=== PATIENT | female | born 1955 | race Caucasian/White ===

== ENCOUNTER 2022-01-15 08:16 | Observation (INO) | payer MEDICARE, OTHER ==
[2022-01-15] MEDS ORDERED: ONDANSETRON 4 MG/2 ML VIAL IVP STA (08:38)
[2022-01-15] MEDS ORDERED: SODIUM CHLORIDE 0.9% 500 ML 500 ML IV STA (08:38)
[2022-01-15] MEDS ORDERED: ASPIRIN 81 MG PO STA (08:38)
[2022-01-15] MEDS ORDERED: PANTOPRAZOLE 40 MG/10 ML VIAL IVP STA (08:39)
[2022-01-15] MEDS ORDERED: MAG HYDROX/AL HYDROX/SIMETH 30 ML, HYOSCYAMINE ELIXIR 10 ML, LIDOCAINE VISCOUS 2% 10 ML PO STA ×3 (08:39)
--- NOTE | 2022-01-15 08:46 | ED ---
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 States that she had a sharp, burning substernal chest pain is presently a 6 out of 10 this morning when she was brushing her teeth. This occurred at approximately 7:30. Is currently 840. States that the pain lasted for approximately 20 minutes and resolved on its own. Currently states there is some residual pressure but mostly complains of throat discomfort at this time. Describes the pain as 0-1 out of 10. Denies shortness of breath. Tonight denies cough. Denies fevers. Denies nausea, vomiting, abdominal pain. Has no other acute complaints at this time. States she is feeling improved with concern regarding heart issue. - Related Data Home Medications Medication Instructions Recorded Confirmed Famotidine [Pepcid AC] 10 mg PO DAILY PRN 01/15/22 01/15/22 Omeprazole 20 mg PO DAILY 01/15/22 01/15/22 Sertraline [Zoloft] 100 mg PO DAILY 01/15/22 01/15/22 diphenhydrAMINE HCL [Benadryl] 25 mg PO HS PRN 01/15/22 01/15/22 Allergies Allergy/AdvReac Type Severity Reaction Status Date / Time No Known Allergies Allergy Verified 01/15/22 10:35 Review of Systems ROS Statement: Those systems with pertinent positive or pertinent negative responses have been documented in the HPI. Review of Systems: CONST: Denies fever EYES: Denies blurry vision ENT: Denies nasal congestion C/V: Denies current Chest pain RESP: Denies shortness of breath GI: Denies abdominal pain : Denies dysuria SKIN: Denies rash. MSK: Denies joint pain. NEURO: Denies headache ROS Other: All systems not noted in ROS Statement are negative. Past Medical History Past Medical History: GERD/Reflux History of Any Multi-Drug Resistant Organisms: None Reported Past Surgical History: No Surgical Hx Reported Past Psychological History: Anxiety, Depression Smoking Status: Never smoker Past Alcohol Use History: None Reported Past Drug Use History: None Reported General Exam - General Exam Comments Initial Comments: General: Appears in no acute distress. HEAD: Normal with no signs of head trauma. EYES: PERRLA, EOMI, conjunctiva normal, no discharge. ENT: Hearing grossly intact, normal oropharynx. RESPIRATORY: Clear breath sounds bilaterally. No wheezes, rales, or rhonchi. C/V: Regular rate and rhythm. S1 and S2 auscultated, no edema, peripheral pulses 2+ and intact throughout ABD: Abd is soft, nontender, nondistended EXT: Normal range of motion, no obvious deformity SKIN: No rashes or lesions observed on exposed skin. NEURO: Alert and oriented 4. No focal deficits. Limitations: no limitations Course Vital Signs 01/15/22 01/15/22 08:21 11:21 Temperature 97.6 F 97.8 F Pulse Rate 58 L 59 L Respiratory 16 18 Rate Blood Pressure 134/74 112/66 O2 Sat by Pulse 100 99 Oximetry Medical Decision Making - Medical Decision Making Based on the patient's presentation and physical exam, I cannot rule out cardiac etiology for her pain that she experienced at home but she is currently asymptomatic. Within normal limits. We will administer 324 millions of aspirin in addition to small GI cocktail. We'll obtain cardiac labs, EKG, chest x-ray. Abdominal meds also be obtained. She was in agreement this plan. EKG shows no signs of acute ischemia. Chest x-ray shows no acute cardiopulmonary process. Laboratory studies are remarkable for an undetected troponin. Remainder the labs are unremarkable. On reevaluation, patient remains asymptomatic. She feels within her normal limits. Vital signs are stable. I did discuss with her admission to observation for as her heart score is moderate at 4. She was in agreement with the plan. We will trend her troponins. Echo is ordered. Cardiology is consulted. I spoke with the admitting physician, observation on-call Dr. Cabral who accepted the patient and was in agreement this plan. Patient was admitted in stable condition to telemetry bed. - Lab Data Result diagrams: 01/15/22 08:55 01/15/22 08:55 Lab Results 01/15/22 01/15/22 01/15/22 Range/Units 08:55 08:55 08:55 WBC 5.8 (3.8-10.6) k/uL RBC 3.85 (3.80-5.40) m/uL Hgb 12.3 (11.4-16.0) gm/dL Hct 37.1 (34.0-46.0) % MCV 96.3 (80.0-100.0) fL MCH 32.1 (25.0-35.0) pg MCHC 33.3 (31.0-37.0) g/dL RDW 12.7 (11.5-15.5) % Plt Count 205 (150-450) k/uL MPV 7.1 Neutrophils % 77 % Lymphocytes % 17 % Monocytes % 4 % Eosinophils % 1 % Basophils % 1 % Neutrophils # 4.5 (1.3-7.7) k/uL Lymphocytes # 1.0 (1.0-4.8) k/uL Monocytes # 0.2 (0-1.0) k/uL Eosinophils # 0.1 (0-0.7) k/uL Basophils # 0.0 (0-0.2) k/uL PT 10.6 (9.0-12.0) sec INR 1.0 (<1.2) APTT 22.0 (22.0-30.0) sec Sodium 138 (137-145) mmol/L Potassium 4.1 (3.5-5.1) mmol/L Chloride 101 (98-107) mmol/L Carbon Dioxide 29 (22-30) mmol/L Anion Gap 8 mmol/L BUN 16 (7-17) mg/dL Creatinine 0.66 (0.52-1.04) mg/dL Est GFR (CKD-EPI)AfAm >90 (>60 ml/min/1.73 sqM) Est GFR (CKD-EPI)NonAf >90 (>60 ml/min/1.73 sqM) Glucose 106 H (74-99) mg/dL Calcium 9.5 (8.4-10.2) mg/dL Magnesium 1.9 (1.6-2.3) mg/dL Total Bilirubin 0.7 (0.2-1.3) mg/dL AST 29 (14-36) U/L ALT 21 (4-34) U/L Alkaline Phosphatase 48 (38-126) U/L Troponin I (0.000-0.034) ng/mL Total Protein 7.4 (6.3-8.2) g/dL Albumin 4.8 (3.5-5.0) g/dL Amylase 81 (30-110) U/L Lipase 105 (23-300) U/L 01/15/22 Range/Units 08:55 WBC (3.8-10.6) k/uL RBC (3.80-5.40) m/uL Hgb (11.4-16.0) gm/dL Hct (34.0-46.0) % MCV (80.0-100.0) fL MCH (25.0-35.0) pg MCHC (31.0-37.0) g/dL RDW (11.5-15.5) % Plt Count (150-450) k/uL MPV Neutrophils % % Lymphocytes % % Monocytes % % Eosinophils % % Basophils % % Neutrophils # (1.3-7.7) k/uL Lymphocytes # (1.0-4.8) k/uL Monocytes # (0-1.0) k/uL Eosinophils # (0-0.7) k/uL Basophils # (0-0.2) k/uL PT (9.0-12.0) sec INR (<1.2) APTT (22.0-30.0) sec Sodium (137-145) mmol/L Potassium (3.5-5.1) mmol/L Chloride (98-107) mmol/L Carbon Dioxide (22-30) mmol/L Anion Gap mmol/L BUN (7-17) mg/dL Creatinine (0.52-1.04) mg/dL Est GFR (CKD-EPI)AfAm (>60 ml/min/1.73 sqM) Est GFR (CKD-EPI)NonAf (>60 ml/min/1.73 sqM) Glucose (74-99) mg/dL Calcium (8.4-10.2) mg/dL Magnesium (1.6-2.3) mg/dL Total Bilirubin (0.2-1.3) mg/dL AST (14-36) U/L ALT (4-34) U/L Alkaline Phosphatase (38-126) U/L Troponin I <0.012 (0.000-0.034) ng/mL Total Protein (6.3-8.2) g/dL Albumin (3.5-5.0) g/dL Amylase (30-110) U/L Lipase (23-300) U/L - EKG Data -: EKG Interpreted by Me EKG Comments: 12-lead Electrocardiogram Interpretation Note EKG was reviewed and interpreted by myself. 12-lead ECG performed at 0828 is interpreted by me as revealing sinus bradycardia at a rate of 54 beats per minute. [place] is normal. ID interval is 134 ms, QRS duration is 86 ms, QTc is 417 ms.. There were no ST or T wave abnormalities to suggest myocardial ischemia or injury. R wave progression across the precordium was satisfactory. By my interpretation this EKG is non-diagnostic for acute ischemia. Disposition Clinical Impression: Chest pain of unknown etiology Disposition: ADMITTED IP TO THIS HOSP Condition: Stable Time of Disposition: 09:58
[2022-01-15 09:16] LABS: Basophils % (A) 1 %; Eosinophils # (A) 0.1 k/uL (0-0.7); Eosinophils % (A) 1 %; HCT 37.1 % (34.0-46.0); HGB 12.3 gm/dL (11.4-16.0); Lymphocytes % (A) 17 %; MCH 32.1 pg (25.0-35.0); MCHC 33.3 g/dL (31.0-37.0); MCV 96.3 fL (80.0-100.0); Mean Platelet Volume 7.1; Monocytes # (A) 0.2 k/uL (0-1.0); Monocytes % (A) 4 %; Neutrophils # (A) 4.5 k/uL (1.3-7.7); Neutrophils % (A) 77 %; Platelet Count 205 k/uL (150-450); RBC 3.85 m/uL (3.80-5.40); RDW 12.7 % (11.5-15.5); WBC 5.8 k/uL (3.8-10.6)
[2022-01-15 09:42] LABS: ALT 21 U/L (4-34); AST 29 U/L (14-36); African American GFR (CKD) >90 (>60 ml/min/1.73 sqM); Albumin 4.8 g/dL (3.5-5.0); Alkaline Phosphatase 48 U/L (38-126); Amylase 81 U/L (30-110); Anion Gap 8 mmol/L; Blood Urea Nitrogen 16 mg/dL (7-17); Calcium 9.5 mg/dL (8.4-10.2); Carbon Dioxide 29 mmol/L (22-30); Chloride 101 mmol/L (98-107); Glucose 106 mg/dL (74-99); Lipase 105 U/L (23-300); Magnesium 1.9 mg/dL (1.6-2.3); Non-African American GFR(CKD) >90 (>60 ml/min/1.73 sqM); Potassium 4.1 mmol/L (3.5-5.1); Sodium 138 mmol/L (137-145); Total Bilirubin 0.7 mg/dL (0.2-1.3); Total Protein 7.4 g/dL (6.3-8.2)
[2022-01-15 09:46] LABS: Prothrombin Time 10.6 sec (9.0-12.0)
--- NOTE | 2022-01-15 09:58 | XR ---
EXAMINATION TYPE: XR chest 2V DATE OF EXAM: 01/15/2022 COMPARISON: None INDICATION: Chest pain midsternal TECHNIQUE: Frontal and lateral views of the chest are obtained. FINDINGS: The heart size is normal. The pulmonary vasculature is normal. The lungs are clear. Retrosternal space appears normal. IMPRESSION: 1. No acute pulmonary process. Follow-up can be performed as clinically indicated.
[2022-01-15] MEDS ORDERED: NALOXONE 0.4 MG/ML 1 ML VIAL IV PRN (10:42)
--- NOTE | 2022-01-15 11:42 | CA ---
Transthoracic Echo Report Name: Cherelle Reyes Age: 66 Gender: F : 1955 Exam Date: 01/15/2022 11:01 Exam Location: [facility] Ht (in): 67 Wt (lb): 130 Ordering Physician: Pop Kent MD Attending/Referring Phys: Local Driver Kya Bustillos RDCS Procedure CPT: Indications: Chest Pain Cardiac Hx: Technical Quality: Good Contrast 1: Total Dose (mL): Contrast 2: Total Dose (mL): MEASUREMENTS (Male / Female) Normal Values 2D ECHO LV Diastolic Diameter PLAX 4.8 cm 4.2 - 5.9 / 3.9 - 5.3 cm LV Systolic Diameter PLAX 2.9 cm IVS Diastolic Thickness 0.8 cm 0.6 - 1.0 / 0.6 - 0.9 cm LVPW Diastolic Thickness 0.8 cm 0.6 - 1.0 / 0.6 - 0.9 cm LV Relative Wall Thickness 0.3 RV Internal Dim ED PLAX 3.4 cm LA Systolic Diameter LX 3.2 cm 3.0 - 4.0 / 2.7 - 3.8 cm LA Volume 53.1 cm??? 18 - 58 / 22 - 52 cm??? M-MODE Aortic Root Diameter MM 3.3 cm MV E Point Septal Separation 0.4 cm AV Cusp Separation MM 1.8 cm DOPPLER AV Peak Velocity 152.5 cm/s AV Peak Gradient 9.3 mmHg MV Area PHT 2.1 cm??? Mitral E Point Velocity 69.6 cm/s Mitral A Point Velocity 87.4 cm/s Mitral E to A Ratio 0.8 MV Deceleration Time 353.9 ms MV E' Velocity 8.5 cm/s Mitral E to MV E' Ratio 8.2 TR Peak Velocity 231.1 cm/s TR Peak Gradient 21.4 mmHg Right Ventricular Systolic Press 25.4 mmHg FINDINGS Left Ventricle Left ventricular ejection fraction is estimated at 60-65 %. Left ventricular cavity size normal. Left ventricular wall thickness normal. Right Ventricle Normal right ventricular size. Right ventricular systolic pressure within normal limits. Right Atrium Normal right atrial size. Left Atrium Mildly increased left atrial volume. No evidence for an atrial septal defect. Mitral Valve Trace mitral regurgitation. Aortic Valve Trileaflet aortic valve. No aortic valve stenosis or regurgitation. Tricuspid Valve Mild tricuspid regurgitation. Pulmonic Valve Structurally normal pulmonic valve. Pericardium Normal pericardium. No pericardial effusion. Aorta Normal size aortic root and proximal ascending aorta. CONCLUSIONS Normal LV size and systolic function Mildly enlarged left atrium Previewed by: Dr. Ke Hernandez MD (Electronically Signed) Final Date: 15 January 2022 11:41
--- NOTE | 2022-01-15 12:47 | P.CRDCN ---
History of Present Illness Consult date: 01/15/22 History of present illness: HISTORY OF PRESENT ILLNESS: This is a 66-year-old female with a past medical history significant for borderline hyperlipidemia per patient, GERD, and depression. 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 We have been asked to see the patient in consultation for chest pain. Patient examined at the bedside. Patient states this morning she was brushing her teeth when she began to have pain in the middle of her chest. She states it felt like an intense heartburn. She denied any radiation of the pain. She does report some nausea and diaphoresis. She states the pain lasted for approximately 40 minutes and then resolved on insulin. At the time of examination, she denies any chest pain or pressure * EKG is not available at the time of this dictation * Chest xray negative for acute process * Laboratory data: WBC 5.8. Hemoglobin 12.3. Platelet count 205. Sodium 138. Potassium 4.1. BUN 16. Creatinine 0.66. Troponin negative 1. * Current home cardiac medications include none * Echocardiogram obtained revealing ejection fraction 60-65%, trace mitral regurgitation, mild tricuspid regurgitation REVIEW OF SYSTEMS: At the time of my exam: CONSTITUTIONAL: Denies fever or chills. HEENT: Denies blurred vision, vision changes, or eye pain. Denies hemoptysis CARDIOVASCULAR: Denies chest pain. Denies orthopnea. Denies PND. Denies palpitations RESPIRATORY: Denies shortness of breath. GASTROINTESTINAL: Denies abdominal pain. Denies nausea or vomiting. HEMATOLOGIC: Denies bleeding disorders. GENITOURINARY: Denies any blood in urine. SKIN: Denies pruitis. Denies rash. PHYSICAL EXAM: VITAL SIGNS: Reviewed. GENERAL: Well-developed in no acute distress. HEENT: Head is normocephalic. Pupils are equal, round. Sclerae anicteric. Mucous membranes of the mouth are moist. Neck supple. No JVD or thyromegaly LUNGS: Respirations even and unlabored. Lungs essentially clear to auscultation bilaterally. HEART: Regular rate and rhythm. S1 and S2 heard. ABDOMEN: Soft. Nondistended. Nontender. EXTREMITIES: Normal range of motion. No clubbing or cyanosis. Peripheral pulses intact. No lower extremity edema NEUROLOGIC: Awake and alert. Oriented x 3. ASSESSMENT: Chest pain Borderline hyperlipidemia per patient GERD Depression PLAN: 2-D echo obtained and reviewed Trend troponins Obtain lipid panel Obtain EKG If troponins remain negative and EKG is negative for ischemia, patient will undergo stress echocardiogram tomorrow Further recommendations pending patient's course Nurse practitioner note has been reviewed by physician. Signing provider agrees with the documented findings, assessment, and plan of care. Past Medical History Past Medical History: GERD/Reflux History of Any Multi-Drug Resistant Organisms: None Reported Past Surgical History: No Surgical Hx Reported Past Psychological History: Anxiety, Depression Smoking Status: Never smoker Past Alcohol Use History: None Reported Past Drug Use History: None Reported Medications and Allergies Home Medications Medication Instructions Recorded Confirmed Type Famotidine [Pepcid AC] 10 mg PO DAILY PRN 01/15/22 01/15/22 History Omeprazole 20 mg PO DAILY 01/15/22 01/15/22 History Sertraline [Zoloft] 100 mg PO DAILY 01/15/22 01/15/22 History diphenhydrAMINE HCL [Benadryl] 25 mg PO HS PRN 01/15/22 01/15/22 History Allergies Allergy/AdvReac Type Severity Reaction Status Date / Time No Known Allergies Allergy Verified 01/15/22 10:35 Physical Exam Vitals: Vital Signs Temp Pulse Pulse Resp BP BP Pulse Ox 01/15/22 11:47 98.4 F 55 L 18 115/69 98 01/15/22 11:21 97.8 F 59 L 18 112/66 99 01/15/22 08:21 97.6 F 58 L 16 134/74 100 Intake and Output 01/14/22 01/15/22 01/15/22 22:59 06:59 14:59 Other: Weight 58.967 kg Results 01/15/22 08:55 01/15/22 08:55 Cardiac Enzymes 01/15/22 01/15/22 Range/Units 08:55 08:55 AST 29 (14-36) U/L Troponin I <0.012 (0.000-0.034) ng/mL Coagulation 01/15/22 Range/Units 08:55 PT 10.6 (9.0-12.0) sec APTT 22.0 (22.0-30.0) sec CBC 01/15/22 Range/Units 08:55 WBC 5.8 (3.8-10.6) k/uL RBC 3.85 (3.80-5.40) m/uL Hgb 12.3 (11.4-16.0) gm/dL Hct 37.1 (34.0-46.0) % Plt Count 205 (150-450) k/uL Comprehensive Metabolic Panel 01/15/22 Range/Units 08:55 Sodium 138 (137-145) mmol/L Potassium 4.1 (3.5-5.1) mmol/L Chloride 101 (98-107) mmol/L Carbon Dioxide 29 (22-30) mmol/L BUN 16 (7-17) mg/dL Creatinine 0.66 (0.52-1.04) mg/dL Glucose 106 H (74-99) mg/dL Calcium 9.5 (8.4-10.2) mg/dL AST 29 (14-36) U/L ALT 21 (4-34) U/L Alkaline Phosphatase 48 (38-126) U/L Total Protein 7.4 (6.3-8.2) g/dL Albumin 4.8 (3.5-5.0) g/dL Current Medications Generic Name Dose Route Start Last Admin Trade Name Freq PRN Reason Stop Dose Admin Heparin Sodium (Porcine) 5,000 unit 01/15/22 16:00 Heparin Sodium,Porcine/Pf 5,000 Unit/0.5 Ml Syringe SQ Q8HR WALKER Naloxone HCl 0.2 mg 01/15/22 10:42 Naloxone 0.4 Mg/Ml 1 Ml Vial IV Q2M PRN Opioid Reversal Intake and Output 01/14/22 01/15/22 01/15/22 22:59 06:59 14:59 Other: Weight 58.967 kg Patient Weight 01/16/22 06:59 Weight 58.967 kg 01/15/22 08:55 01/15/22 08:55
--- NOTE | 2022-01-15 15:40 | P.HPIM ---
History of Present Illness H&P Date: 01/15/22 History of Presenting Illness: Patient is a very pleasant 66-year-old female with a past medical history of GERD, depression, and anxiety otherwise reporting being healthy with daily exercise regimen and strict following of a heart healthy diet. She presented to the emergency department with a chief complaint of chest pain. Patient reports shortly after taking her medication this morning and going to pressure teeth she suddenly experienced a sharp pain to her midsternal chest accompanied by nausea, extremely dry mouth and diaphoresis. Patient reports long-standing history of GERD but states this was much more severe than anything she has ever experienced and lasted for approximately 40 minutes prior to improving and finally resolving after receiving medications administered in the emergency department (Protonix, Zofran, and GI cocktail consisting of Maalox, viscous lidocaine, and hyoscyamine). Patient denies having any recent illnesses or infections, fevers, chills, palpitations, shortness of breath, abdominal pain, vomiting, or experiencing any numbness/tingling/weakness/swelling in her extremities. She underwent full evaluation in the emergency department. EKG was completed showing sinus bradycardia at 54 bpm. Chest x-ray negative for acute cardiopulm onary process. CBC, CMP, and coags all unremarkable. Troponin was negative at less than 0.012. Patient was admitted under services with consultation to cardiology. Review of systems: Pertinent positives and negatives as discussed in HPI, a complete review of systems was performed and all other systems are negative. Physical exam: Vital signs reviewed and stable. General: Nontoxic, no distress and appears stated age. Derm: Skin warm and dry, normal coloration for ethnicity. Head: Atraumatic, normocephalic and symmetric. Eyes: EOMs intact, no lid lag, and anicteric sclera Mouth: no lip lesions, mucus membranes moist Cardiovascular: regular rate and rhythm with normal S1S2, no murmur, positive posterior tibial pulses bilaterally, and cap refill < 2 seconds. Lungs: Respirations even, regular, and unlabored on room air. Lungs CTA bilaterally, no rhonchi, no rales, no wheezing, and no accessory muscle usage. Abdominal: soft, nontender to palpation, no guarding, no appreciable organomegaly Ext: ROM intact. No gross muscle atrophy, no edema, no contractures Neuro: Speech clear, face symmetrical and CN II-XII grossly intact with no noted focal neuro deficits Psych: Alert and oriented to person, place, time, and situation. Appropriate and pleasant affect. Assessment and Plan of Care: Chest pain, rule out acute coronary event -Cardiology consult, appreciate further recommendations -Telemetry monitoring -Trend troponins -Cardiac diet, NPO at midnight -Continue daily Aspirin -Lipid profile with a.m. labs. -Echocardiogram GERD -GI prophylaxis with Protonix 40 mg before meals twice a day. Anxiety and depression -Continue daily medication regimen with sertraline. The patient is admitted with an anticipated less than 2 midnight stay for evaluation of chest pain. CODE STATUS: Full code DVT prophylaxis: Heparin Discussed with: Patient and RN Anticipated discharge date: Clinical course to determine likely tomorrow morning Anticipated discharge place: Home A total of 40 minutes was spent on the care of this complex patient more than 50% of the time was spent in counseling and care coordination. I reviewed the documentation as provided by the SIMONE above, who is the original author of this note. I agree with the documented assessment and plan, with the following changes: none Past Medical History Past Medical History: GERD/Reflux History of Any Multi-Drug Resistant Organisms: None Reported Past Surgical History: No Surgical Hx Reported Past Anesthesia/Blood Transfusion Reactions: No Reported Reaction Past Psychological History: Anxiety, Depression Smoking Status: Never smoker Past Alcohol Use History: None Reported Past Drug Use History: None Reported Medications and Allergies Home Medications Medication Instructions Recorded Confirmed Type Famotidine [Pepcid AC] 10 mg PO DAILY PRN 01/15/22 01/15/22 History Omeprazole 20 mg PO DAILY 01/15/22 01/15/22 History Sertraline [Zoloft] 100 mg PO DAILY 01/15/22 01/15/22 History diphenhydrAMINE HCL [Benadryl] 25 mg PO HS PRN 01/15/22 01/15/22 History Allergies Allergy/AdvReac Type Severity Reaction Status Date / Time No Known Allergies Allergy Verified 01/15/22 10:35 Physical Exam Vitals: Vital Signs Temp Pulse Pulse Resp BP BP Pulse Ox 01/15/22 13:58 98.7 F 58 L 16 101/55 95 01/15/22 13:19 63 18 01/15/22 11:47 98.4 F 55 L 18 115/69 98 01/15/22 11:21 97.8 F 59 L 18 112/66 99 01/15/22 08:21 97.6 F 58 L 16 134/74 100 Intake and Output 01/15/22 01/15/22 01/15/22 06:59 14:59 22:59 Other: # Voids 2 Weight 58.967 kg Results CBC & Chem 7: 01/15/22 08:55 01/15/22 08:55 Labs: Abnormal Lab Results - Last 24 Hours (Table) 01/15/22 Range/Units 08:55 Glucose 106 H (74-99) mg/dL Thrombosis Risk Factor Assmnt - Choose All That Apply Any of the Below Risk Factors Present?: Yes Other Risk Factors: Yes Each Risk Factor Represents 2 Points: Age 61-74 years Other congenital or acquired thrombophilia - If yes, enter type in comment: No Thrombosis Risk Factor Assessment Total Risk Factor Score: 2 Thrombosis Risk Factor Assessment Level: Low Risk
[2022-01-15] MEDS: HEPARIN SODIUM,PORCINE/PF 5,000 UNIT/0.5 ML SYRINGE SQ SCH ×2 (17:44→23:25)
[2022-01-15] MEDS: PANTOPRAZOLE 40 MG TABLET PO SCH (17:44)
[2022-01-16 06:50] LABS: Basophils % (A) 1 %; Eosinophils # (A) 0.1 k/uL (0-0.7); Eosinophils % (A) 3 %; HCT 40.4 % (34.0-46.0); HGB 13.2 gm/dL (11.4-16.0); Lymphocytes # (A) 1.5 k/uL (1.0-4.8); Lymphocytes % (A) 44 %; MCHC 32.7 g/dL (31.0-37.0); MCV 100.9 fL (80.0-100.0); Mean Platelet Volume 7.5; Monocytes # (A) 0.2 k/uL (0-1.0); Monocytes % (A) 5 %; Neutrophils # (A) 1.6 k/uL (1.3-7.7); Neutrophils % (A) 45 %; Platelet Count 206 k/uL (150-450); RBC 4.01 m/uL (3.80-5.40); RDW 13.2 % (11.5-15.5); WBC 3.5 k/uL (3.8-10.6)
[2022-01-16] MEDS: PANTOPRAZOLE 40 MG TABLET PO SCH (07:43)
[2022-01-16] MEDS: HEPARIN SODIUM,PORCINE/PF 5,000 UNIT/0.5 ML SYRINGE SQ SCH (07:43)
[2022-01-16] MEDS ORDERED: SERTRALINE 100 MG TAB PO SCH (09:00)
[2022-01-16] MEDS ORDERED: ASPIRIN 81 MG PO SCH (09:00)
--- NOTE | 2022-01-16 09:09 | P.PN ---
Subjective Progress Note Date: 01/16/22 HISTORY OF PRESENT ILLNESS: This is a 66-year-old female with a past medical history significant for borderline hyperlipidemia per patient, GERD, and depression. Patient does not follow with a inventory technician. We have been asked to see the patient in consultation for chest pain. Patient examined at the bedside. Patient states this morning she was brushing her teeth when she began to have pain in the middle of her chest. She states it felt like an intense heartburn. She denied any radiation of the pain. She does report some nausea and diaphoresis. She states the pain lasted for approximately 40 minutes and then resolved on insulin. At the time of examination, she denies any chest pain or pressure * EKG is not available at the time of this dictation * Chest xray negative for acute process * Laboratory data: WBC 5.8. Hemoglobin 12.3. Platelet count 205. Sodium 138. Potassium 4.1. BUN 16. Creatinine 0.66. Troponin negative 1. * Current home cardiac medications include none * Echocardiogram obtained revealing ejection fraction 60-65%, trace mitral regurgitation, mild tricuspid regurgitation 01/16/2022 Patient examined this were the bedside. Patient denies any further episodes of chest pain or pressure. She denies shortness of breath. Her vital signs are stable. Troponins are negative 3. PHYSICAL EXAM: VITAL SIGNS: Reviewed. GENERAL: Well-developed in no acute distress. HEENT: Head is normocephalic. Pupils are equal, round. Sclerae anicteric. Mucous membranes of the mouth are moist. Neck supple. No JVD or thyromegaly LUNGS: Respirations even and unlabored. Lungs essentially clear to auscultation bilaterally. HEART: Regular rate and rhythm. S1 and S2 heard. ABDOMEN: Soft. Nondistended. Nontender. EXTREMITIES: Normal range of motion. No clubbing or cyanosis. Peripheral pulses intact. No lower extremity edema NEUROLOGIC: Awake and alert. Oriented x 3. ASSESSMENT: Chest pain Borderline hyperlipidemia per patient GERD Depression PLAN: Await results of lipid panel Patient to undergo stress echocardiogram today. If negative, she may be discharged home from a cardiology perspective Nurse practitioner note has been reviewed by physician. Signing provider agrees with the documented findings, assessment, and plan of care. Objective - Vital Signs Vital signs: Vital Signs Temp 98.4 F 01/16/22 07:00 Pulse 58 L 01/16/22 07:00 Resp 18 01/16/22 07:43 BP 106/62 01/16/22 07:00 Pulse Ox 100 01/16/22 07:00 FiO2 Intake & Output 01/15/22 01/16/22 01/16/22 18:59 06:59 18:59 Intake Total 118 500 Balance 118 500 Weight 58.967 kg Intake: Oral 118 500 Other: Voiding Method Toilet Toilet # Voids 2 2 - Labs CBC & Chem 7: 01/16/22 06:34 01/15/22 08:55 Labs: Abnormal Lab Results - Last 24 Hours (Table) 01/15/22 01/16/22 Range/Units 08:55 06:34 WBC 3.5 L (3.8-10.6) k/uL MCV 100.9 H (80.0-100.0) fL Glucose 106 H (74-99) mg/dL
[2022-01-16 09:30] LABS: Chol/HDL Ratio 3.46 Ratio; VLDL Calculation 13.32 mg/dL (5.00-40.00)
[2022-01-16] MEDS ORDERED: ATORVASTATIN 40 MG TAB PO SCH (13:20)
[2022-01-16] MEDS ORDERED: BUTALB/APAP/CAFF 50-325-40MG TAB PO PRN (13:20)
[2022-01-16 14:13] VITALS: BP 122/70; PULSE 64; RESP 16; TEMP 99
--- NOTE | 2022-01-16 14:50 | CA ---
Stress Echo Report Cherelle Reyes Age: 66 Gender: F : 1955 Exam Date: 01/16/2022 10:28 Exam Location: [place] [facility] Ht (in): 67 Wt (lb): 130 Ordering Physician: Amara Rios Referring Physician: [id number] Stitchdown Thread Laster: Hollie Corral RDCS Technologist Procedure CPT: Indication: CP ICD-9 Codes: Rhythm: Patient History: Cardiac Medications: Medications in past 24 hours: Contrast: Stress Results Protocol: Orville Total dose(mL): Exercise Duration (min:sec): [address] Depression (mm): Angina Score: Gordillo Score: METS: 12.1 Resting HR: 68 Resting BP: 121 / 86 Peak HR: 149 Peak BP: 204 / 81 Max Predicted HR: 153 97 % Max Predicted HR Target HR: 130 Double Product: 79279 Stress Summary: BP Response: Reason for Termination: MAX EXERTION/TARGET HR Cardiac Symptoms: NO SYMPTOMS ECG Analysis Resting ECG: Stress ECG: Arrhythmia: Echo Analysis Resting Echo: Peak Echo Analysis: MEASUREMENTS (Male/Female) Normal Values CONCLUSIONS Baseline heart rate 51 beats a minute, Baseline blood pressure 121/86 mmHg Baseline 2-D echo images showed normal LV systolic function with no segmental wall motion abnormalities Patient exercised on a Orville protocol for 11 minutes Peak heart rate 149 beats a minute, peak blood pressure 146/57 mmHg Initially with exercise bigeminal PVCs from the RVOT were noted These are suppressed at peak exercise No nonsustained ventricular tachycardia No ECG ms for ischemia At the recovery PVCs returned She had a second PVC morphology with a right bundle branch block originating from the inferior wall of the LV likely posteroseptal papillary muscle Baseline 2-D echo showed normal LV systolic function At peak x-ray there was excellent augmentation will probably be contradictory without development any wall motion abnormalities At recovery vision global LV systolic function with normal Impression No ECG or echocardiogram evidence of ischemia RVOT PVCs at the start of exercise no nonsustained atrial tachycardia Dr. Ke Hernandez MD (Electronically Signed) Final Date: 16 January 2022 14:49
--- NOTE | 2022-01-16 15:17 | P.DS ---
Providers Date of admission: 01/15/22 10:44 Expected date of discharge: 01/16/22 Attending physician: Victoriano Cabral MD Consults: 01/15/22 10:42 Consult Physician Routine Consulting Provider: [facility] Consult Reason/Comments: chest pain Do you want consulting provider notified?: Yes Primary care physician: Physician Nonstaff Hospital Course: Discharge Diagnosis: Chest pain, acute coronary event ruled out Hyperlipidemia. Total cholesterol 241 and LDL of 158.0. Patient to continue heart healthy diet and was started on atorvastatin 40 mg daily. GERD, patient being discharged home on Protonix 40 mg before meals twice a day and Carafate 1 g nightly. It was recommended that if patient continues to suffer from acid reflux, she is strongly encouraged to follow up outpatient with GI specialist. Anxiety and depression. Continue daily medication regimen with sertraline. Hospital Course: Patient is a very pleasant 66-year-old female with a past medical history of GERD, depression, and anxiety otherwise reporting being healthy with daily exercise regimen and strict following of a heart healthy diet. She presented to the emergency department with a chief complaint of chest pain. Patient reports shortly after taking her medication this morning and going to pressure teeth she suddenly experienced a sharp pain to her midsternal chest accompanied by nausea, extremely dry mouth and diaphoresis. Patient reports long-standing history of GERD but states this was much more severe than anything she has ever experienced and lasted for approximately 40 minutes prior to improving and finally resolving after receiving medications administered in the emergency department (Protonix, Zofran, and GI cocktail consisting of Maalox, viscous lidocaine, and hyoscyamine). Patient denies having any recent illnesses or infections, fevers, chills, palpitations, shortness of breath, abdominal pain, vomiting, or experiencing any numbness/tingling/weakness/swelling in her extremities. She underwent full evaluation in the emergency department. EKG was completed showing sinus bradycardia at 54 bpm. Chest x-ray negative for acute cardiopulmonary process. CBC, CMP, and coags all unremarkable. Troponin was negative at less than 0.012. Patient was admitted under services with consultation to cardiology. Patient monitored overnight and previous reported symptoms of chest pain remained resolved after receiving GI cocktail administered upon arrival to the emergency department. Troponins were trended throughout the night all negative at less than 0.012. Lipid profile elevated revealing a total cholesterol of 241 and an LDL of 158.0. Echocardiogram revealing normal EF between 60 and 65% with mildly enlarged left atrium. Stress test negative finding showing no EKG or echocardiogram evidence of ischemia. Patient is medically stable at this time in stable for discharge home. Patient being discharged home on atorvastatin secondary to elevated lipid profile. She is also being discharged home on Protonix 40 mg twice daily and Carafate nightly for her GERD. Patient instructed to discontinue omeprazole and Pepcid. Patient to follow up outpatient with PCP and cardiology. Patient also educated that if she continues to get reflux it is highly recommended she follow up outpatient with GI specialist. Physical exam: Vital signs reviewed and stable. General: Nontoxic, no distress and appears stated age. Derm: Skin warm and dry, normal coloration for ethnicity. Head: Atraumatic, normocephalic and symmetric. Eyes: EOMs intact, no lid lag, and anicteric sclera Mouth: no lip lesions, mucus membranes moist Cardiovascular: regular rate and rhythm with normal S1S2, no murmur, positive posterior tibial pulses bilaterally, and cap refill < 2 seconds. Lungs: Respirations even, regular, and unlabored on room air. Lungs CTA bilaterally, no rhonchi, no rales, no wheezing, and no accessory muscle usage. Abdominal: soft, nontender to palpation, no guarding, no appreciable organomegaly Ext: ROM intact. No gross muscle atrophy, no edema, no contractures Neuro: Speech clear, face symmetrical and CN II-XII grossly intact with no noted focal neuro deficits Psych: Alert and oriented to person, place, time, and situation. Appropriate and pleasant affect. A total of 38 minutes of time were spent preparing this complex discharge summary. Pt was discharged on 01/16/22 at 3:11 PM. I reviewed the documentation as provided by the SIMONE above, who is the original author of this note. I agree with the documented assessment and plan, with the following changes: none Patient Condition at Discharge: Stable Plan - Discharge Summary Discharge Rx Participant: No New Discharge Prescriptions: New Sucralfate [Carafate] 1 gm PO ACHS 30 Days #30 tablet Atorvastatin [Lipitor] 40 mg PO DAILY 30 Days #30 tab Pantoprazole [Protonix] 40 mg PO AC-BID 30 Days #60 tab Continue diphenhydrAMINE HCL [Benadryl] 25 mg PO HS PRN PRN Reason: Insomnia Sertraline [Zoloft] 100 mg PO DAILY Discontinued Omeprazole 20 mg PO DAILY Famotidine [Pepcid AC] 10 mg PO DAILY PRN PRN Reason: Heartburn Discharge Medication List Sertraline [Zoloft] 100 mg PO DAILY 01/15/22 [History] diphenhydrAMINE HCL [Benadryl] 25 mg PO HS PRN 01/15/22 [History] Atorvastatin [Lipitor] 40 mg PO DAILY 30 Days #30 tab 01/16/22 [Rx] Pantoprazole [Protonix] 40 mg PO AC-BID 30 Days #60 tab 01/16/22 [Rx] Sucralfate [Carafate] 1 gm PO ACHS 30 Days #30 tablet 01/16/22 [Rx] Follow up Appointment(s)/Referral(s): Ke Hernandez MD [STAFF PHYSICIAN] - 1 Week (Office will call with appointment time and date.) Nasreen Michelle MD [STAFF PHYSICIAN] - As Needed (Strongly recommended he continue to experience acid reflux that she follow up outpatient with a radio sportscaster for further evaluation and endoscopy.) Jeffry Loomis [STAFF PHYSICIAN] - 1 Week Patient Instructions/Handouts: Chest Pain (DC) Activity/Diet/Wound Care/Special Instructions: Activity: As tolerated. Take breaks as needed. Diet: Heart healthy and carb consistent diet. Avoid salts, or foods with hidden salts such as canned or boxed foods and frozen dinners. Extra salt makes your heart work harder and traps the fluid in your body for longer. Special Instructions: Take all of your medications as directed and remember to keep all of your doctor's appointments and follow-up as needed. You have been started on atorvastatin secondary to elevated cholesterol level. Your total cholesterol was 241 and your LDL was 158. For treatment of your GERD as we discussed your being started on Protonix 40 mg twice daily and Carafate 1 g nightly. Thank you for allowing us to participate in your care, it was truly a pleasure having you for our patient!!! Discharge Disposition: HOME SELF-CARE
[2022-01-16 15:21] LABS: African American GFR (CKD) 88 (>60 ml/min/1.73 sqM); Anion Gap 6 mmol/L; Blood Urea Nitrogen 15 mg/dL (7-17); Calcium 9.2 mg/dL (8.4-10.2); Carbon Dioxide 28 mmol/L (22-30); Chloride 102 mmol/L (98-107); Glucose 127 mg/dL (74-99); Non-African American GFR(CKD) 77 (>60 ml/min/1.73 sqM); Potassium 3.9 mmol/L (3.5-5.1); Sodium 136 mmol/L (137-145)
== END 2022-01-16 15:45 | disposition home or self-care (01) ==
LOC: EC 08:16 → 6NMEDSUR 10:44
PROVIDERS: ADMIT Family Medicine; ATTEND Family Medicine
DX: R07.89 Other chest pain (principal); I25.2 Old myocardial infarction; E78.5 Hyperlipidemia, unspecified; K21.9 Gastro-esophageal reflux disease without esophagitis; F32.A Depression, unspecified; F41.9 Anxiety disorder, unspecified; I08.1 Rheumatic disorders of both mitral and tricuspid valves; Z79.899 Other long term (current) drug therapy; Z79.82 Long term (current) use of aspirin
CPT/HCPCS: 96372 ×2; 96374; 96375; 99285; 36415; 93005; 93306; 93351; 80061; 80053; 80048; 82150; 83690; 83735; 84484; 85025 ×2; 85610; 85730; 71046; G0378 ×2; J2405; C9113; J1644 ×2